=== PATIENT | female | born 1975 | race Caucasian/White ===

== ENCOUNTER → 2021-01-03 | Outpatient (CLI) | payer OTHER ==
[2017-11-15 15:00] VITALS: BP 162/88
[~2021-01-03] VITALS: Ht 154.9 cm; Wt 79.4 kg
[~2021-01-03] MED LIST: AMIT10TA PO; ANAS1TAB47 PO; APIX5TAB PO; ATOR20TA PO; CLONAZEPAM1 MG PO; CYCL5TAB PO; ENOX80DI SQ; FLUO40CA2 PO; HYDR-2761 PO; HYDR10TA2 PO; METO-239 PO; METO10TA81 PO; MIRT-8 PO; OMEP20TA63 PO; ONDA4TAB12 PO; OXYB15TA18 PO; PANT20TA2 PO; SINCALIDE 1.6 MCG in IV NORMAL SALINE 50ML 30 ML IV ONE; TRAM50TA PO; WARF4TAB64 PO
--- NOTE | 2021-01-03 08:41 | RAD ---
EXAMINATION: RIGHT UPPER QUADRANT ULTRASOUND CLINICAL HISTORY: Nausea, vomiting TECHNIQUE: Sonography of the right upper quadrant was performed. COMPARISON: CT abdomen/pelvis 10/31/2020 FINDINGS: Pancreas: Normal sonographic appearance. - Portions obscured: Tail Liver: - Echotexture: Normal, homogeneous. - Echogenicity: Increased, suggestive of steatosis. - Surface contour: Smooth - Lesions: None. Biliary: No intrahepatic biliary duct dilation. - CBD: 4 mm. - Gallbladder: Normal caliber - Contents: No cholelithiasis - Wall: Normal - Other: No pericholecystic fluid. Right Kidney: Measures 11.1 cm in length. No hydronephrosis or focal lesion. Ascites: None. Aorta/IVC: Partially visualized aorta and IVC unremarkable. IMPRESSION: Findings suggestive of hepatic steatosis. Electronically signed by: Teja Johnson DO (01/03/2021 8:38 AM) [id number]
--- NOTE | 2021-01-03 13:26 | RAD ---
INDICATION: Abdomen pain COMPARISON: Ultrasound from same day TECHNIQUE: Tc99m Choletec was injected intravenously followed by scintigraphic images of the abdomen. CCK was then injected and a gallbladder ejection fraction was calculated. FINDINGS: Appropriate radiotracer clearance from the blood pool. Appropriate radiotracer excretion into the biliary tree. Prompt passage of contrast into the small bowel. Visualization of the gallbladder prior to the 60 minute time point. Gallbladder ejection fraction is 23 percent. IMPRESSION: * No scintigraphic evidence of acute cholecystitis or high grade biliary obstruction. * Gallbladder ejection fraction is 23 percent which is decreased. Can be seen with biliary dyskines ia. Electronically signed by: Nate Robert MD (01/03/2021 1:23 PM) [id number]
== END ==
LOC: US 06:12
PROVIDERS: ATTEND Internal Medicine Gastroenterology
DX: R11.2 Nausea with vomiting, unspecified (principal); R10.9 Unspecified abdominal pain
CPT/HCPCS: 76705; 78227; A9537; J2805

== ENCOUNTER 2021-01-04 15:17 | Observation (INO) | payer OTHER ==
[~2021-01-04] VITALS: Ht 154.9 cm; Wt 79.3 kg
[~2021-01-04 15:17] MED LIST changes: -AMIT10TA PO; -ANAS1TAB47 PO; -APIX5TAB PO; -ATOR20TA PO; -CYCL5TAB PO; -ENOX80DI SQ; -HYDR-2761 PO; -METO-239 PO; -METO10TA81 PO; -OMEP20TA63 PO; -ONDA4TAB12 PO; -OXYB15TA18 PO; -SINCALIDE 1.6 MCG in IV NORMAL SALINE 50ML 30 ML IV ONE; -TRAM50TA PO
[2021-01-04] MEDS ORDERED: MORPHINE SULFATE 10 MG/ML VIAL. IV ONE (17:00)
[2021-01-04] MEDS ORDERED: ONDANSETRON PF 4 MG/2 ML VIAL. IVP ONE (17:00)
--- NOTE | 2021-01-04 17:24 | RAD ---
Single view chest dated 01/04/2021 5:21 PM: COMPARISON: None Clinical Indication: Right upper quadrant pain. Findings: Single upright portable exam of the chest was performed. Heart size and mediastinal contours are with in normal limits. Lungs are clear. No consolidation or pleural effusion. No pneumothorax. IMPRESSION: No acute radiographic abnormality. Electronically signed by: Mike Aldrich MD (01/04/2021 5:22 PM) KRYSTLE
--- NOTE | 2021-01-04 17:30 | PHYS DOC ---
Past Medical History Additional Past Medical Histor: Factor V Leiden, Breast Cx (FELTON FLORES DO) Past Surgical History: Appendectomy, Tubal ligation, Other (FELTON FLORES DO) Smoking Status: Former Smoker (FELTON FLORES DO) General Adult EDM: Chief Complaint: ABDOMINAL PAIN HPI: HPI: 45-year-old female presents to the emergency department presenting with right upper quadrant abdominal pain. She reports that she was here yesterday in the emergency department and had a HIDA scan as well as a right upper quadrant ultrasound performed and states that she is here today because her gallbladder is acting up. Patient states that she also is nauseous, intermittent vomiting. She otherwise has no complaints including no shortness of breath, cough, fever, chills. (FELTON FLORES DO) Review of Systems: Review of Systems: Constitutional: [Denies fever or chills]. Respiratory: [Denies cough or shortness of breath]. Cardiovascular: [Denies chest pain or edema]. GI: Admits to abdominal pain and nausea. : [Denies change in urination, dysuria]. Musculoskeletal: [Denies extremity pain, or trauma]. Skin: [Denies rash, skin change]. Neurologic: [Denies headache, focal weakness]. Psychiatric: [Denies depression or anxiety]. All other systems reviewed as negative except for what was mentioned in the HPI. (FELTON FLORES DO) Heart Score: C/O Chest Pain: No (FELTON FLORES DO) C/O Chest Pain: N/A (PRANAV BACON DO) Current Medications: Current Medications Medications (Trade) Dose Ordered Sig/[facility] Start Time Stop Time Status Last Admin Dose Admin Morphine Sulfate (Morphine Sulfate) 5 mg 1X ONCE 01/04/21 17:00 01/04/21 17:01 DC Ondansetron HCl (Zofran) 4 mg 1X ONCE 01/04/21 17:00 01/04/21 17:01 DC (FELTON FLORES DO) Allergies: Allergies: Allergies Coded Allergies Type Severity Reaction Last Updated Verified clindamycin Allergy Intermediate 11/14/17 Yes doxycycline Allergy Intermediate 11/11/17 Yes NSAIDS (Non-Steroidal Anti-Inflamma Adverse Reaction Intermediate 11/11/17 Yes (FELTON FLORES DO) Physical Exam: PE: Constitutional: No acute distress, non-toxic appearance. HENT: Atraumatic, bilateral external ears normal, nose normal. Eyes: PERRLA, EOMI, conjunctiva normal, no discharge. Neck: Normal range of motion, supple, no stridor. Cardiovascular: Heart rate regular rhythm. 2+ radial pulses Lungs & Thorax: No respiratory distress, symmetrical expansion. Abdomen: Soft, right upper quadrant tenderness, no distention no rebound or guarding. Skin: Warm, dry. Extremities: No tenderness, no cyanosis, ROM intact, no edema. Neurologic: Alert and oriented X 3, normal motor function, normal sensory function, no focal deficits noted. Non ataxic gait. GCS 15. Psychologic: Affect normal, judgment normal, mood normal. (FELTON FLORES DO) Current Patient Data: Vital Signs: Vital Signs Date Time Temp Pulse Resp B/P (MAP) Pulse Ox O2 Delivery O2 Flow Rate FiO2 01/04/21 16:30 97.7 80 18 135/93 (112) 100 Room Air 97.7 (FELTON FLORES DO) Radiology/Procedures: Radiology/Procedures: Single view chest dated 01/04/2021 5:21 PM: COMPARISON: None Clinical Indication: Right upper quadrant pain. Findings: Single upright portable exam of the chest was performed. Heart size and mediastinal contours are within normal limits. Lungs are clear. No consolidation or pleural effusion. No pneumothorax. IMPRESSION: No acute radiographic abnormality. Electronically signed by: Mike Aldrich MD (01/04/2021 5:22 PM) CT abdomen and pelvis with contrast: Reason for examination: Abdominal pain right upper quadrant for 2 to 3 weeks. Helical images were obtained through the abdomen and pelvis with intravenous administration of 75 cc Omnipaque 300. Reconstruction was performed in sagittal and coronal planes. Exposure: One or more of the following individualized dose reduction techniques were utilized for this examination: 1. Automated exposure control 2. Adjustment of the mA and/or kV according to patient size 3. Use of iterative reconstruction technique. The lung bases show a linear density at posteriorly at the right costophrenic angle probably reflecting atelectasis or scarring. The heart size is normal with no pericardial effusion. There is a small nodular asymmetry laterally in the right breast measuring approximately 1.4 cm in size. This may be related to history of right breast cancer. Recommend clinical correlation and appropriate follow-up. No focal abnormality seen at the liver, gallbladder, spleen, adrenal glands or pancreas. The abdominal aorta and inferior vena cava show no acute abnormalities. The colon shows no diverticulosis or diverticulitis or evidence of colitis. Appendix is surgically absent. The small intestinal tract shows no abnormal dilatation, wall thickening or obstruction. No abnormality seen at the stomach or duodenum. The kidneys show no renal masses, renal calculi, hydronephrosis or evidence of obstructive uropathy. No abnormality seen at the bladder or uterus. There has been tubal ligation. No adnexal masses are seen. No free fluid or free air is seen within the abdomen or pelvis. No acute bony abnormalities are seen. IMPRESSION: Linear atelectasis or scarring posteriorly at the right lung base. 1.4 cm nodular density in the right breast possibly related to previous history of right breast cancer. Recommend clinical correlation and appropriate follow- up. No abnormality seen in the abdomen or pelvis. Electronically signed by: Nciole Melchor MD (01/04/2021 6:24 PM) (FELTON FLORES DO) Course & Med Decision Making: Course & Med Decision Making Patient's chart was reviewed by me. She was here in the emergency department yesterday and had a HIDA scan and right upper quadrant ultrasound performed which were both unremarkable and did not show sign of choledocholithiasis or cholecystitis Care was transferred to Dr. Bacon at 1800, pending diagnostics. (FELTON FLORES DO) Course & Med Decision Making Assumed care at thisf change. Disposition pending CT and labs. REsults reviewed and discussed with patient. Patient c/o intractable pain and unable to keep food/drink down. Patient advised sent to ER by GI Doctor. Will admit to hospitalist and consult GI. (PRANAV BACON DO) Departure Departure Impression: Primary Impression: Abdominal pain Additional Impression: Nausea & vomiting Disposition: HOME / SELF CARE / HOMELESS Admitting Physician: EMBER (PRANAV BACON DO) Condition: STABLE Referrals: PAUL ROSAS (PCP) Patient Instructions: Abdominal Pain Scripts Metoclopramide Hcl (REGLAN) 10 Mg Tablet 10 MG PO BIDAC for Gastroparesis for 30 Days, #60 TAB 0 Refills Prov: DORIS ANDREWS MD 01/05/21 Ondansetron (ONDANSETRON ODT) 4 Mg Tab.rapdis 4 MG PO PRN Q4HRS PRN for NAUSEA for 30 Days, #30 TAB 5 Refills Prov: DORIS ANDREWS MD 01/05/21 FELTON FLORES DO Jan 04, 2021 17:30 PRANAV BACON I DO Jan 04, 2021 20:17
[2021-01-04 17:45] LABS: BASO % 1 % (0-3); EOS # 0.1 x10^3/uL (0.0-0.7); EOS % 1 % (0-3); HEMATOCRIT 34.1 % (36.0-47.0); HEMOGLOBIN 12.1 g/dL (12.0-15.5); LYMPH # 1.8 x10^3/uL (1.0-4.8); LYMPH % 36 % (24-48); MEAN CORPUSCULAR HEMOGLOBIN 30 pg (25-35); MEAN CORPUSCULAR HGB CONC 35 g/dL (31-37); MEAN CORPUSCULAR VOLUME 84 fL (79-100); MONO # 0.3 x10^3/uL (0.0-1.1); MONO % 6 % (0-9); NEUT # 2.8 x10^3/uL (1.8-7.7); NEUT % 56 % (31-73); PLATELET COUNT 279 x10^3/uL (140-400); RED BLOOD COUNT 4.04 x10^6/uL (3.50-5.40); RED CELL DISTRIBUTION WIDTH 16.3 % (11.5-14.5)
[2021-01-04 17:55] LABS: CALCIUM 9.1 mg/dL (8.5-10.1); CREATININE 0.9 mg/dL (0.6-1.0); POTASSIUM 3.1 mmol/L (3.5-5.1)
[2021-01-04 18:01] LABS: DIRECT BILIRUBIN 0.1 mg/dL (0.0-0.2); TOTAL BILIRUBIN 0.4 mg/dL (0.2-1.0); TOTAL PROTEIN 7.7 g/dL (6.4-8.2)
[2021-01-04] MEDS ORDERED: IOHEXOL 300 MG/ML 100ML VIAL. IV ONE (18:15)
[2021-01-04] MEDS ORDERED: CONTRAST GIVEN. MC PRN (18:15)
--- NOTE | 2021-01-04 18:26 | RAD ---
CT abdomen and pelvis with contrast: Reason for examination: Abdominal pain right upper quadrant for 2 to 3 weeks. Helical images were obtained through the abdomen and pelvis with intravenous administration of 75 cc Omnipaque 300. Reconstruction was performed in sagittal and coronal planes. Exposure: One or more of the following individualized dose reduction techniques were utilized for thi s examination: 1. Automated exposure control 2. Adjustment of the mA and/or kV according to patient size 3. Use of iterative reconstruction technique. The lung bases show a linear density at posteriorly at the right costophrenic angle probably reflecti ng atelectasis or scarring. The heart size is normal with no pericardial effusion. There is a small n odular asymmetry laterally in the right breast measuring approximately 1.4 cm in size. This may be re lated to history of right breast cancer. Recommend clinical correlation and appropriate follow-up. No focal abnormality seen at the liver, gallbladder, spleen, adrenal glands or pancreas. The abdomina l aorta and inferior vena cava show no acute abnormalities. The colon shows no diverticulosis or dive rticulitis or evidence of colitis. Appendix is surgically absent. The small intestinal tract shows no abnormal dilatation, wall thickening or obstruction. No abnormality seen at the stomach or duodenum. The kidneys show no renal masses, renal calculi, hydronephrosis or evidence of obstructive uropathy. No abnormality seen at the bladder or uterus. There has been tubal ligation. No adnexal masses are se en. No free fluid or free air is seen within the abdomen or pelvis. No acute bony abnormalities are s een. IMPRESSION: Linear atelectasis or scarring posteriorly at the right lung base. 1.4 cm nodular density in the right breast possibly related to previous history of right breast cance r. Recommend clinical correlation and appropriate follow-up. No abnormality seen in the abdomen or pelvis. Electronically signed by: Nicole Melchor MD (01/04/2021 6:24 PM) CHUY
[2021-01-04 19:04] LABS: BILIRUBIN,URINE NEGATIVE (NEG); CLARITY,URINE CLEAR; COLOR,URINE YELLOW; NITRITE,URINE NEGATIVE (NEG); PROTEIN,URINE NEGATIVE (NEG-TRACE); UROBILINOGEN,URINE 0.2 mg/dL (0.2 mg/dL)
[2021-01-04 19:11] LABS: BACTERIA,URINE 0 /HPF (0-FEW); RBC,URINE 0 /HPF (0-2)
[2021-01-04] MEDS ORDERED: MORPHINE SULFATE 2 MG/ML INJ. IVP PRN (20:30)
[2021-01-04] MEDS ORDERED: METOCLOPRAMIDE HCL 10 MG/2 ML VIAL. IVP ONE (21:00)
[2021-01-04] MEDS ORDERED: MORPHINE SULFATE 4 MG/ML INJ. IVP ONE (21:00)
[2021-01-04 23:00] VITALS: BP 161/101
[2021-01-04] MEDS ORDERED: METO-239 PO (23:24)
[2021-01-04] MEDS ORDERED: CYCL5TAB PO (23:24)
[2021-01-04] MEDS ORDERED: APIX5TAB PO (23:24)
[2021-01-04] MEDS ORDERED: OXYB15TA18 PO (23:24)
[2021-01-04] MEDS ORDERED: ATOR20TA PO (23:24)
[2021-01-04] MEDS ORDERED: OMEP20TA63 PO (23:24)
[2021-01-04] MEDS ORDERED: AMIT10TA PO (23:24)
[2021-01-04] MEDS ORDERED: ANAS1TAB47 PO (23:24)
[2021-01-04] MEDS ORDERED: NON FORMULARY ITEM (Cyclobenzaprine Hcl 1 TAB) PO SCH (23:45)
[2021-01-04] MEDS ORDERED: ANTI-COAG MONITOR BY PHARMACY. MC PRN (23:45)
[2021-01-05] MEDS ORDERED: ATORVASTATIN CALCIUM 20 MG TABLET PO SCH ×2
[2021-01-05] MEDS ORDERED: METOPROLOL SUCC 24HR ER 25 MG TAB.ER.24H. PO SCH ×2
[2021-01-05] MEDS ORDERED: ANASTROZOLE 1 MG TABLET PO SCH ×2
[2021-01-05] MEDS ORDERED: AMITRIPTYLINE HCL 10 MG TABLET. PO SCH ×2
[2021-01-05] MEDS ORDERED: PANTOPRAZOLE 40 MG TABLET.DR. PO SCH
[2021-01-05] MEDS ORDERED: CYCLOBENZAPRINE 10 MG TABLET. PO SCH
[2021-01-05] MEDS: APIXABAN 5 MG TABLET. PO SCH ×2 (00:28→09:00)
[2021-01-05] MEDS: METOCLOPRAMIDE HCL 10 MG/2 ML VIAL. IVP PRN ×3 (00:29→13:47)
[2021-01-05 02:59] VITALS: BP 118/78
--- NOTE | 2021-01-05 04:05 | NUR ---
The patient, NAOMY EDMOND, 45 y/o, F admitted by NATALI OVERTON MD, was given written information regarding hospital policies, unit procedures and contact persons. Valuables were checked and 2 cell phones, a pallet stone positioner, and clothes.
[2021-01-05 07:00] VITALS: BP 116/72
--- NOTE | 2021-01-05 07:44 | PDOC1 ---
History and Physical Date of Admission Date of Admission DATE: 01/05/21 TIME: 07:42 Identification/Chief Complaint Chief Complaint Abdominal pain Source Source: Patient History of Present Illness History of Present Illness Ms. Styles is a 45-year-old female with past medical history of factor V Leiden breast cancer comes to the ED 2 days in a row for what she describes as intractable abdominal pain she had right upper quadrant ultrasound and HIDA scan on 01/03/2021 that showed fatty liver otherwise fairly unremarkable gallbladder ultrasound though on HIDA scan EF was 23% possibility of biliary dyskinesia. She did eat bagels every morning for the last week and a donut yesterday morning with coffee. Counseled on low-fat diet and discussed with GI and general surgery nurse practitioner bedside. Past Medical History Cardiovascular: No pertinent hx Pulmonary: No pertinent hx GI: No pertinent hx Heme/Onc: Other (Factor V leiden) Hepatobiliary: No pertinent hx Psych: No pertinent hx Musculoskeletal: low back pain Rheumatologic: No pertinent hx Infectious disease: No pertinent hx Renal/: No pertinent hx Endocrine: No pertinent hx Past Surgical History Past Surgical History: Appendectomy, Tubal Ligation Family History Family History: Other (Factor V leiden) Social History Smoke: Quit ALCOHOL: none Current Problem List Problem List Problems Medical Problems: (1) Abdominal pain Status: Acute (2) Nausea & vomiting Status: Acute Current Medications Current Medications Current Medications Morphine Sulfate (Morphine Sulfate) 5 mg 1X ONCE IV Last administered on 01/04/21at 17:53; Start 01/04/21 at 17:00; Stop 01/04/21 at 17:01; Status DC Ondansetron HCl (Zofran) 4 mg 1X ONCE IVP Last administered on 01/04/21at 17:51; Start 01/04/21 at 17:00; Stop 01/04/21 at 17:01; Status DC Iohexol (Omnipaque 300 Mg/ml) 75 ml 1X ONCE IV Last administered on 01/04/21at 18:07; Start 01/04/21 at 18:15; Stop 01/04/21 at 18:16; Status DC Info (CONTRAST GIVEN -- Rx MONITORING) 1 each PRN DAILY PRN MC SEE COMMENTS; Start 01/04/21 at 18:15; Stop 01/06/21 at 18:14 Morphine Sulfate (Morphine Sulfate) 2 mg PRN Q2HR PRN IVP PAIN Last administered on 01/05/21at 00:30; Start 01/04/21 at 20:30; Stop 01/05/21 at 20:29 Metoclopramide HCl (Reglan Vial) 10 mg 1X ONCE IVP Last administered on 01/04/21at 20:58; Start 01/04/21 at 21:00; Stop 01/04/21 at 21:01; Status DC Morphine Sulfate (Morphine Sulfate) 4 mg 1X ONCE IVP Last administered on 01/04/21at 20:58; Start 01/04/21 at 21:00; Stop 01/04/21 at 21:01; Status DC Amitriptyline HCl (Elavil) 40 mg HS PO ; Start 01/05/21 at 00:00; Stop 01/04/21 at 23:49; Status DC Anastrozole (Arimidex) 1 mg HS PO ; Start 01/05/21 at 00:00; Stop 01/04/21 at 23:49; Status DC Atorvastatin Calcium (Lipitor) 20 mg HS PO ; Start 01/05/21 at 00:00; Stop 01/04/21 at 23:49; Status DC Metoprolol Succinate (Toprol Xl) 25 mg HS PO ; Start 01/05/21 at 00:00; Stop 01/04/21 at 23:49; Status DC Cyclobenzaprine HCl (Flexeril) 5 mg QHS PO Last administered on 01/05/21at 00:28; Start 01/05/21 at 00:00 Pantoprazole Sodium (Protonix) 40 mg HS PO Last administered on 01/05/21at 00:28; Start 01/05/21 at 00:00 Oxybutynin Chloride (Ditropan) 5 mg [id number] PO ; Start 01/05/21 at 09:00 Apixaban (Eliquis) 5 mg BID PO Last administered on 01/05/21at 00:28; Start 01/05/21 at 00:00 Metoclopramide HCl (Reglan Vial) 10 mg PRN Q6HRS PRN IVP NAUSEA/VOMITING Last administered on 01/05/21at 07:07; Start 01/04/21 at 23:45 Amitriptyline HCl (Elavil) 40 mg HS PO Last administered on 01/05/21at 00:28; Start 01/05/21 at 00:00 Anastrozole (Arimidex) 1 mg HS PO Last administered on 01/05/21at 00:41; Start 01/05/21 at 00:00 Atorvastatin Calcium (Lipitor) 20 mg HS PO Last administered on 01/05/21at 00:29; Start 01/05/21 at 00:00 Metoprolol Succinate (Toprol Xl) 25 mg HS PO Last administered on 01/05/21at 00:29; Start 01/05/21 at 00:00 Non-Formulary Medication (Cyclobenzaprine Hcl ) 1 tab QHS PO ; Start 01/04/21 at 23:45; Status UNV Info (Anti-Coagulation Monitoring By Pharmacy) 1 each PRN DAILY PRN MC PER PROTOCOL Last administered on 01/05/21at 00:59; Start 01/04/21 at 23:45 Active Scripts Active Reported Eliquis (Apixaban) 5 Mg Tablet 5 Mg PO BID Eliquis (Apixaban) 5 Mg Tablet 5 Mg PO BID Lipitor (Atorvastatin Calcium) 20 Mg Tablet 1 Tab PO HS Oxybutynin Chloride Er (Oxybutynin Chloride) 15 Mg Tab.er.24 1 Tab PO HS Metoprolol Succinate ( Xl ) (Metoprolol Succinate) 25 Mg Tab.er.24h 1 Tab PO HS Cyclobenzaprine Hcl 5 Mg Tablet 1 Tab PO QHS Arimidex (Anastrozole) 1 Mg Tablet 1 Tab PO HS 30 Days Amitriptyline Hcl 10 Mg Tablet 40 Mg PO HS Prilosec Otc (Omeprazole Magnesium) 20 Mg Tablet.dr 40 Mg PO HS Allergies Allergies: Coded Allergies: clindamycin (Verified Allergy, Intermediate, 11/14/17) doxycycline (Verified Allergy, Intermediate, 11/11/17) NSAIDS (Non-Steroidal Anti-Inflamma (Verified Adverse Reaction, Intermediate, 11/11/17) pt. states she cannot take while on Coumadin ROS General: No: Chills, Night Sweats, Fatigue, Malaise, Appetite, Other PSYCHOLOGICAL ROS: No: Anxiety, Behavioral Disorder, Concentration difficultie, Decreased libido, Depression, Disorientation, Hallucinations, Hostility, Irritablity, Memory difficulties, Mood Swings, Obsessive thoughts, Physical abuse, Sexual abuse, Sleep disturbances, Suicidal ideation, Other Eyes: No Blurry vision, No Decreased vision, No Double vision, No Dry eyes, No Excessive tearing, No Eye Pain, No Itchy Eyes, No Loss of vision, No Photophobia, No Scotomata, No Uses contacts, No Uses glasses, No Other HEENT: No: Heacaches, Visual Changes, Hearing change, Nasal congestion, Nasal discharge, Oral lesions, Sinus pain, Sore Throat, Epistaxis, Sneezing, Snoring, Tinnitus, Vertigo, Vocal changes, Other ALLERGY AND IMMUNOLOGY: No: Hives, Insect Bite Sensitivity, Itchy/Watery Eyes, Nasal Congestion, Post Nasal Drip, Seasonal Allergies, Other Hematological and Lymphatic: No: Bleeding Problems, Blood Clots, Blood Transfusions, Brusing, Night Sweats, Pallor, Swollen Lymph Nodes, Other ENDOCRINE: No: Breast Changes, Galactorrhea, Hair Pattern Changes, Hot Flashes, Malaise/lethargy, Mood Swings, Palpitations, Polydipsia/polyuria, Skin Changes, Temperature Intolerance, Unexpected Weight Changes, Other Breast: No New/Changing Breast Lumps, No Nipple changes, No Nipple discharge, No Other Respiratory: No: Cough, Hemoptysis, Orthopnea, Pleuritic Pain, Shortness of breath, SOB with excertion, Sputum Changes, Stridor, Tachypnea, Wheezing, Other Cardiovascular: No Chest Pain, No Palpitations, No Orthopnea, No Paroxysmal Noc. Dyspnea, No Edema, No Lt Headedness, No Other Gastrointestinal: Yes Nausea, Yes Abdominal Pain; No Vomiting, No Diarrhea, No Constipation, No Melena, No Hematochezia, No Other Genitourinary: No Dysuria, No Frequency, No Incontinence, No Hematuria, No Retention, No Discharge, No Urgency, No Pain, No Flank Pain, No Other, No , No , No , No , No , No , No Musculoskeletal: No Gait Disturbance, No Joint Pain, No Joint Stiffness, No Joint Swelling, No Muscle Pain, No Muscular Weakness, No Pain In:, No Swelling In:, No Other Neurological: No Behavorial Changes, No Bowel/Bladder ControlChng, No Confusion, No Dizziness, No Gait Disturbance, No Headaches, No Impaired Coord/balance, No Memory Loss, No Numbness/Tingling, No Seizures, No Speech Problems, No Tremors, No Visual Changes, No Weakness, No Other Skin: No Dry Skin, No Eczema, No Hair Changes, No Lumps, No Mole Changes, No Mottling, No Nail Changes, No Pruritus, No Rash, No Skin Lesion Changes, No Other, No Acne Physical Exam General: Alert, Oriented X3, Cooperative, No acute distress HEENT: Atraumatic, PERRLA, EOMI, Mucous membr. moist/pink Lungs: Clear to auscultation, Normal air movement Heart: S1S2, RRR, no thrills, no rubs, no gallops, no murmurs Abdomen: Normal bowel sounds, Soft, No tenderness, No hepatosplenomegaly, No masses Extremities: No clubbing, No cyanosis, No edema, Normal pulses, No tenderness/swelling Skin: No rashes, No breakdown, No significant lesion Neuro: Normal gait, Normal speech, Strength at 5/5 X4 ext, Normal tone, Sensation intact, Cranial nerves 3-12 NL, Reflexes 2+ Psych/Mental Status: Mental status NL, Mood NL Vitals Vitals Vital Signs Date Time Temp Pulse Resp B/P (MAP) Pulse Ox O2 Delivery O2 Flow Rate FiO2 01/05/21 02:59 97.5 75 18 118/78 (91) 99 Room Air 97.5 Labs Labs Laboratory Tests Test 01/04/21 17:30 01/04/21 18:30 01/04/21 19:07 White Blood Count 5.0 x10^3/uL (4.0-11.0) Red Blood Count 4.04 x10^6/uL (3.50-5.40) Hemoglobin 12.1 g/dL (12.0-15.5) Hematocrit 34.1 % (36.0-47.0) Mean Corpuscular Volume 84 fL (79-100) Mean Corpuscular Hemoglobin 30 pg (25-35) Mean Corpuscular Hemoglobin Concent 35 g/dL (31-37) Red Cell Distribution Width 16.3 % (11.5-14.5) Platelet Count 279 x10^3/uL (140-400) Neutrophils (%) (Auto) 56 % (31-73) Lymphocytes (%) (Auto) 36 % (24-48) Monocytes (%) (Auto) 6 % (0-9) Eosinophils (%) (Auto) 1 % (0-3) Basophils (%) (Auto) 1 % (0-3) Neutrophils # (Auto) 2.8 x10^3/uL (1.8-7.7) Lymphocytes # (Auto) 1.8 x10^3/uL (1.0-4.8) Monocytes # (Auto) 0.3 x10^3/uL (0.0-1.1) Eosinophils # (Auto) 0.1 x10^3/uL (0.0-0.7) Basophils # (Auto) 0.0 x10^3/uL (0.0-0.2) Sodium Level 143 mmol/L (136-145) Potassium Level 3.1 mmol/L (3.5-5.1) Chloride Level 105 mmol/L (98-107) Carbon Dioxide Level 28 mmol/L (21-32) Anion Gap 10 (6-14) Blood Urea Nitrogen 9 mg/dL (7-20) Creatinine 0.9 mg/dL (0.6-1.0) Estimated GFR (Cockcroft-Gault) 68.0 Glucose Level 102 mg/dL (70-99) Calcium Level 9.1 mg/dL (8.5-10.1) Total Bilirubin 0.4 mg/dL (0.2-1.0) Direct Bilirubin 0.1 mg/dL (0.0-0.2) Aspartate Amino Transf (AST/SGOT) 20 U/L (15-37) Alanine Aminotransferase (ALT/SGPT) 29 U/L (14-59) Alkaline Phosphatase 117 U/L (46-116) Total Protein 7.7 g/dL (6.4-8.2) Albumin 4.0 g/dL (3.4-5.0) Lipase 68 U/L (73-393) Urine Collection Type Unknown Urine Color Yellow Urine Clarity Clear Urine pH 7.0 (<5.0-8.0) Urine Specific [place] >=1.030 (1.000-1.030) Urine Protein Negative mg/dL (NEG-TRACE) Urine Glucose (UA) Negative mg/dL (NEG) Urine Ketones (Stick) Negative mg/dL (NEG) Urine Blood Negative (NEG) Urine Nitrite Negative (NEG) Urine Bilirubin Negative (NEG) Urine Urobilinogen Dipstick 0.2 mg/dL (0.2 mg/dL) Urine Leukocyte Esterase Trace (NEG) Urine RBC 0 /HPF (0-2) Urine WBC 1-4 /HPF (0-4) Urine Squamous Epithelial Cells Mod /LPF Urine Bacteria 0 /HPF (0-FEW) Bedside Urine HCG, Qualitative Hcg negative (Negative) Laboratory Tests Test 01/04/21 17:30 01/04/21 18:30 01/04/21 19:07 White Blood Count 5.0 x10^3/uL (4.0-11.0) Red Blood Count 4.04 x10^6/uL (3.50-5.40) Hemoglobin 12.1 g/dL (12.0-15.5) Hematocrit 34.1 % (36.0-47.0) Mean Corpuscular Volume 84 fL (79-100) Mean Corpuscular Hemoglobin 30 pg (25-35) Mean Corpuscular Hemoglobin Concent 35 g/dL (31-37) Red Cell Distribution Width 16.3 % (11.5-14.5) Platelet Count 279 x10^3/uL (140-400) Neutrophils (%) (Auto) 56 % (31-73) Lymphocytes (%) (Auto) 36 % (24-48) Monocytes (%) (Auto) 6 % (0-9) Eosinophils (%) (Auto) 1 % (0-3) Basophils (%) (Auto) 1 % (0-3) Neutrophils # (Auto) 2.8 x10^3/uL (1.8-7.7) Lymphocytes # (Auto) 1.8 x10^3/uL (1.0-4.8) Monocytes # (Auto) 0.3 x10^3/uL (0.0-1.1) Eosinophils # (Auto) 0.1 x10^3/uL (0.0-0.7) Basophils # (Auto) 0.0 x10^3/uL (0.0-0.2) Sodium Level 143 mmol/L (136-145) Potassium Level 3.1 mmol/L (3.5-5.1) Chloride Level 105 mmol/L (98-107) Carbon Dioxide Level 28 mmol/L (21-32) Anion Gap 10 (6-14) Blood Urea Nitrogen 9 mg/dL (7-20) Creatinine 0.9 mg/dL (0.6-1.0) Estimated GFR (Cockcroft-Gault) 68.0 Glucose Level 102 mg/dL (70-99) Calcium Level 9.1 mg/dL (8.5-10.1) Total Bilirubin 0.4 mg/dL (0.2-1.0) Direct Bilirubin 0.1 mg/dL (0.0-0.2) Aspartate Amino Transf (AST/SGOT) 20 U/L (15-37) Alanine Aminotransferase (ALT/SGPT) 29 U/L (14-59) Alkaline Phosphatase 117 U/L (46-116) Total Protein 7.7 g/dL (6.4-8.2) Albumin 4.0 g/dL (3.4-5.0) Lipase 68 U/L (73-393) Urine Collection Type Unknown Urine Color Yellow Urine Clarity Clear Urine pH 7.0 (<5.0-8.0) Urine Specific [place] >=1.030 (1.000-1.030) Urine Protein Negative mg/dL (NEG-TRACE) Urine Glucose (UA) Negative mg/dL (NEG) Urine Ketones (Stick) Negative mg/dL (NEG) Urine Blood Negative (NEG) Urine Nitrite Negative (NEG) Urine Bilirubin Negative (NEG) Urine Urobilinogen Dipstick 0.2 mg/dL (0.2 mg/dL) Urine Leukocyte Esterase Trace (NEG) Urine RBC 0 /HPF (0-2) Urine WBC 1-4 /HPF (0-4) Urine Squamous Epithelial Cells Mod /LPF Urine Bacteria 0 /HPF (0-FEW) Bedside Urine HCG, Qualitative Hcg negative (Negative) Images Images CT abdomen/pelvis: The lung bases show a linear density at posteriorly at the right costophrenic angle probably reflecting atelectasis or scarring. The heart size is normal with no pericardial effusion. There is a small nodular asymmetry laterally in the right breast measuring approximately 1.4 cm in size. This may be related to history of right breast cancer. Recommend clinical correlation and appropriate follow-up. No focal abnormality seen at the liver, gallbladder, spleen, adrenal glands or pancreas. The abdominal aorta and inferior vena cava show no acute abnormalities. The colon shows no diverticulosis or diverticulitis or evidence of colitis. Appendix is surgically absent. The small intestinal tract shows no abnormal dilatation, wall thickening or obstruction. No abnormality seen at the stomach or duodenum. The kidneys show no renal masses, renal calculi, hydronephrosis or evidence of obstructive uropathy. No abnormality seen at the bladder or uterus. There has been tubal ligation. No adnexal masses are seen. No free fluid or free air is seen within the abdomen or pelvis. No acute bony abnormalities are seen. IMPRESSION: Linear atelectasis or scarring posteriorly at the right lung base. 1.4 cm nodular density in the right breast possibly related to previous history of right breast cancer. Recommend clinical correlation and appropriate follow- up. No abnormality seen in the abdomen or pelvis. VTE Prophylaxis Ordered VTE Prophylaxis Devices: Yes VTE Pharmacological Prophylaxi: No Assessment/Plan Assessment/Plan A/P: Intractable abdominal pain -notes 2-week history. Counseled on low-fat diet and a low processed carbohydrate diet. No signs of acute cholecystitis I discussed outpatient referral for consideration of cholecystectomy is more appropriate and she would need to be bridged on Lovenox therapy anyway given her history of pulmonary embolism and factor V Leiden. I discussed with GI and general surgery. Factor V Leiden - with h/o pulmonary embolism, on eliquis. Heme onc was consulted. breast cancer - on arimidex FEN - Clear liquid diet PPX - eliquis to lovenox FULL CODE DIspo - observation, can d/c home and schedule outpatient elective cholecystectomy on Lovenox if okay with everyone else and she tolerates diet well Justifications for Admission Other Justification DORIS ANDREWS MD Jan 05, 2021 07:44
[2021-01-05] MEDS: OXYBUTYNIN CHLORIDE 5 MG TABLET PO SCH ×2 (09:00→14:00)
--- NOTE | 2021-01-05 09:05 | PDOC2 ---
CHARMAINE JUNIOR Faizan [employer]SEMBLER MOVEMENT 01/05/21 0904: CONSULT Date of Consult Date of Consult DATE: 01/05/21 TIME: 08:58 Reason for Consult Reason for Consult: abd pain, low GB EF Referring Physician Referring Physician: YULIET Identification/Chief Complaint Chief Complaint abdominal pain Source Source: Chart review, Patient History of Present Illness Reason for Visit: RUQ pain x 2 weeks, was see as outpt by DEDRICK Kennedy done yesterday with low EF of 23% nausea, emesis she does have factor V leiden--on eliquis, did receive last night Past Medical History Cardiovascular: No pertinent hx Pulmonary: No pertinent hx GI: No pertinent hx Heme/Onc: No pertinent hx Hepatobiliary: No pertinent hx Psych: No pertinent hx Musculoskeletal: low back pain Rheumatologic: No pertinent hx Infectious disease: No pertinent hx Renal/: No pertinent hx Endocrine: No pertinent hx Past Surgical History Past Surgical History: Appendectomy, Hernia Repair Family History Family History: Other (noncontributory to current illness ) Social History Quit ALCOHOL: none Lives: Alone Current Problem List Problem List Problems Medical Problems: (1) Abdominal pain Status: Acute (2) Nausea & vomiting Status: Acute Current Medications Current Medications Current Medications Morphine Sulfate (Morphine Sulfate) 5 mg 1X ONCE IV Last administered on 01/04/21at 17:53; Start 01/04/21 at 17:00; Stop 01/04/21 at 17:01; Status DC Ondansetron HCl (Zofran) 4 mg 1X ONCE IVP Last administered on 01/04/21at 17:51; Start 01/04/21 at 17:00; Stop 01/04/21 at 17:01; Status DC Iohexol (Omnipaque 300 Mg/ml) 75 ml 1X ONCE IV Last administered on 01/04/21at 18:07; Start 01/04/21 at 18:15; Stop 01/04/21 at 18:16; Status DC Info (CONTRAST GIVEN -- Rx MONITORING) 1 each PRN DAILY PRN MC SEE COMMENTS; Start 01/04/21 at 18:15; Stop 01/06/21 at 18:14 Morphine Sulfate (Morphine Sulfate) 2 mg PRN Q2HR PRN IVP PAIN Last administered on 01/05/21at 00:30; Start 01/04/21 at 20:30; Stop 01/05/21 at 20:29 Metoclopramide HCl (Reglan Vial) 10 mg 1X ONCE IVP Last administered on 01/04/21at 20:58; Start 01/04/21 at 21:00; Stop 01/04/21 at 21:01; Status DC Morphine Sulfate (Morphine Sulfate) 4 mg 1X ONCE IVP Last administered on 01/04/21at 20:58; Start 01/04/21 at 21:00; Stop 01/04/21 at 21:01; Status DC Amitriptyline HCl (Elavil) 40 mg HS PO ; Start 01/05/21 at 00:00; Stop 01/04/21 at 23:49; Status DC Anastrozole (Arimidex) 1 mg HS PO ; Start 01/05/21 at 00:00; Stop 01/04/21 at 23:49; Status DC Atorvastatin Calcium (Lipitor) 20 mg HS PO ; Start 01/05/21 at 00:00; Stop 01/04/21 at 23:49; Status DC Metoprolol Succinate (Toprol Xl) 25 mg HS PO ; Start 01/05/21 at 00:00; Stop 01/04/21 at 23:49; Status DC Cyclobenzaprine HCl (Flexeril) 5 mg QHS PO Last administered on 01/05/21at 00:28; Start 01/05/21 at 00:00 Pantoprazole Sodium (Protonix) 40 mg HS PO Last administered on 01/05/21at 00:28; Start 01/05/21 at 00:00 Oxybutynin Chloride (Ditropan) 5 mg WMT450 PO ; Start 01/05/21 at 09:00 Apixaban (Eliquis) 5 mg BID PO Last administered on 01/05/21at 00:28; Start 01/05/21 at 00:00 Metoclopramide HCl (Reglan Vial) 10 mg PRN Q6HRS PRN IVP NAUSEA/VOMITING Last administered on 01/05/21at 07:07; Start 01/04/21 at 23:45 Amitriptyline HCl (Elavil) 40 mg HS PO Last administered on 01/05/21at 00:28; Start 01/05/21 at 00:00 Anastrozole (Arimidex) 1 mg HS PO Last administered on 01/05/21at 00:41; Start 01/05/21 at 00:00 Atorvastatin Calcium (Lipitor) 20 mg HS PO Last administered on 01/05/21at 00:29; Start 01/05/21 at 00:00 Metoprolol Succinate (Toprol Xl) 25 mg HS PO Last administered on 01/05/21at 00:29; Start 01/05/21 at 00:00 Non-Formulary Medication (Cyclobenzaprine Hcl ) 1 tab QHS PO ; Start 01/04/21 at 23:45; Status UNV Info (Anti-Coagulation Monitoring By Pharmacy) 1 each PRN DAILY PRN MC PER PROTOCOL Last administered on 01/05/21at 00:59; Start 01/04/21 at 23:45 Active Scripts Active Reported Eliquis (Apixaban) 5 Mg Tablet 5 Mg PO BID Eliquis (Apixaban) 5 Mg Tablet 5 Mg PO BID Lipitor (Atorvastatin Calcium) 20 Mg Tablet 1 Tab PO HS Oxybutynin Chloride Er (Oxybutynin Chloride) 15 Mg Tab.er.24 1 Tab PO HS Metoprolol Succinate ( Xl ) (Metoprolol Succinate) 25 Mg Tab.er.24h 1 Tab PO HS Cyclobenzaprine Hcl 5 Mg Tablet 1 Tab PO QHS Arimidex (Anastrozole) 1 Mg Tablet 1 Tab PO HS 30 Days Amitriptyline Hcl 10 Mg Tablet 40 Mg PO HS Prilosec Otc (Omeprazole Magnesium) 20 Mg Tablet.dr 40 Mg PO HS Allergies Allergies: Coded Allergies: clindamycin (Verified Allergy, Intermediate, 11/14/17) doxycycline (Verified Allergy, Intermediate, 11/11/17) NSAIDS (Non-Steroidal Anti-Inflamma (Verified Adverse Reaction, Intermediate, 11/11/17) pt. states she cannot take while on Coumadin ROS General: No: Chills, Fatigue PSYCHOLOGICAL ROS: No: Anxiety, Depression Eyes: No Blurry vision, No Double vision HEENT: No: Heacaches, Sore Throat Hematological and Lymphatic: YES: Bleeding Problems, Blood Clots Respiratory: No: Cough, Shortness of breath Cardiovascular: No Chest Pain, No Palpitations Gastrointestinal: Yes Other (see hpi) Genitourinary: No Dysuria, No Retention Musculoskeletal: No Joint Pain, No Muscular Weakness Neurological: No Impaired Coord/balance, No Numbness/Tingling Skin: No Pruritus, No Rash Physical Exam General: Alert, Oriented X3, Cooperative HEENT: Atraumatic, PERRLA Lungs: Clear to auscultation, Normal air movement Heart: Regular rate, Normal S1, Normal S2 Abdomen: Soft, Other (RUQ ttp) Extremities: No clubbing, No cyanosis Skin: No rashes, No breakdown Neuro: Normal gait, Normal speech Psych/Mental Status: Mental status NL, Mood NL MUSCULOSKELETAL: No deformity, No swelling Vitals VITALS Vital Signs Date Time Temp Pulse Resp B/P (MAP) Pulse Ox O2 Delivery O2 Flow Rate FiO2 01/05/21 02:59 97.5 75 18 118/78 (91) 99 Room Air 97.5 Labs Labs Laboratory Tests Test 01/04/21 17:30 01/04/21 18:30 01/04/21 19:07 White Blood Count 5.0 x10^3/uL (4.0-11.0) Red Blood Count 4.04 x10^6/uL (3.50-5.40) Hemoglobin 12.1 g/dL (12.0-15.5) Hematocrit 34.1 % (36.0-47.0) Mean Corpuscular Volume 84 fL (79-100) Mean Corpuscular Hemoglobin 30 pg (25-35) Mean Corpuscular Hemoglobin Concent 35 g/dL (31-37) Red Cell Distribution Width 16.3 % (11.5-14.5) Platelet Count 279 x10^3/uL (140-400) Neutrophils (%) (Auto) 56 % (31-73) Lymphocytes (%) (Auto) 36 % (24-48) Monocytes (%) (Auto) 6 % (0-9) Eosinophils (%) (Auto) 1 % (0-3) Basophils (%) (Auto) 1 % (0-3) Neutrophils # (Auto) 2.8 x10^3/uL (1.8-7.7) Lymphocytes # (Auto) 1.8 x10^3/uL (1.0-4.8) Monocytes # (Auto) 0.3 x10^3/uL (0.0-1.1) Eosinophils # (Auto) 0.1 x10^3/uL (0.0-0.7) Basophils # (Auto) 0.0 x10^3/uL (0.0-0.2) Sodium Level 143 mmol/L (136-145) Potassium Level 3.1 mmol/L (3.5-5.1) Chloride Level 105 mmol/L (98-107) Carbon Dioxide Level 28 mmol/L (21-32) Anion Gap 10 (6-14) Blood Urea Nitrogen 9 mg/dL (7-20) Creatinine 0.9 mg/dL (0.6-1.0) Estimated GFR (Cockcroft-Gault) 68.0 Glucose Level 102 mg/dL (70-99) Calcium Level 9.1 mg/dL (8.5-10.1) Total Bilirubin 0.4 mg/dL (0.2-1.0) Direct Bilirubin 0.1 mg/dL (0.0-0.2) Aspartate Amino Transf (AST/SGOT) 20 U/L (15-37) Alanine Aminotransferase (ALT/SGPT) 29 U/L (14-59) Alkaline Phosphatase 117 U/L (46-116) Total Protein 7.7 g/dL (6.4-8.2) Albumin 4.0 g/dL (3.4-5.0) Lipase 68 U/L (73-393) Urine Collection Type Unknown Urine Color Yellow Urine Clarity Clear Urine pH 7.0 (<5.0-8.0) Urine Specific [place] >=1.030 (1.000-1.030) Urine Protein Negative mg/dL (NEG-TRACE) Urine Glucose (UA) Negative mg/dL (NEG) Urine Ketones (Stick) Negative mg/dL (NEG) Urine Blood Negative (NEG) Urine Nitrite Negative (NEG) Urine Bilirubin Negative (NEG) Urine Urobilinogen Dipstick 0.2 mg/dL (0.2 mg/dL) Urine Leukocyte Esterase Trace (NEG) Urine RBC 0 /HPF (0-2) Urine WBC 1-4 /HPF (0-4) Urine Squamous Epithelial Cells Mod /LPF Urine Bacteria 0 /HPF (0-FEW) Bedside Urine HCG, Qualitative Hcg negative (Negative) Laboratory Tests Test 01/04/21 17:30 01/04/21 18:30 01/04/21 19:07 White Blood Count 5.0 x10^3/uL (4.0-11.0) Red Blood Count 4.04 x10^6/uL (3.50-5.40) Hemoglobin 12.1 g/dL (12.0-15.5) Hematocrit 34.1 % (36.0-47.0) Mean Corpuscular Volume 84 fL (79-100) Mean Corpuscular Hemoglobin 30 pg (25-35) Mean Corpuscular Hemoglobin Concent 35 g/dL (31-37) Red Cell Distribution Width 16.3 % (11.5-14.5) Platelet Count 279 x10^3/uL (140-400) Neutrophils (%) (Auto) 56 % (31-73) Lymphocytes (%) (Auto) 36 % (24-48) Monocytes (%) (Auto) 6 % (0-9) Eosinophils (%) (Auto) 1 % (0-3) Basophils (%) (Auto) 1 % (0-3) Neutrophils # (Auto) 2.8 x10^3/uL (1.8-7.7) Lymphocytes # (Auto) 1.8 x10^3/uL (1.0-4.8) Monocytes # (Auto) 0.3 x10^3/uL (0.0-1.1) Eosinophils # (Auto) 0.1 x10^3/uL (0.0-0.7) Basophils # (Auto) 0.0 x10^3/uL (0.0-0.2) Sodium Level 143 mmol/L (136-145) Potassium Level 3.1 mmol/L (3.5-5.1) Chloride Level 105 mmol/L (98-107) Carbon Dioxide Level 28 mmol/L (21-32) Anion Gap 10 (6-14) Blood Urea Nitrogen 9 mg/dL (7-20) Creatinine 0.9 mg/dL (0.6-1.0) Estimated GFR (Cockcroft-Gault) 68.0 Glucose Level 102 mg/dL (70-99) Calcium Level 9.1 mg/dL (8.5-10.1) Total Bilirubin 0.4 mg/dL (0.2-1.0) Direct Bilirubin 0.1 mg/dL (0.0-0.2) Aspartate Amino Transf (AST/SGOT) 20 U/L (15-37) Alanine Aminotransferase (ALT/SGPT) 29 U/L (14-59) Alkaline Phosphatase 117 U/L (46-116) Total Protein 7.7 g/dL (6.4-8.2) Albumin 4.0 g/dL (3.4-5.0) Lipase 68 U/L (73-393) Urine Collection Type Unknown Urine Color Yellow Urine Clarity Clear Urine pH 7.0 (<5.0-8.0) Urine Specific [place] >=1.030 (1.000-1.030) Urine Protein Negative mg/dL (NEG-TRACE) Urine Glucose (UA) Negative mg/dL (NEG) Urine Ketones (Stick) Negative mg/dL (NEG) Urine Blood Negative (NEG) Urine Nitrite Negative (NEG) Urine Bilirubin Negative (NEG) Urine Urobilinogen Dipstick 0.2 mg/dL (0.2 mg/dL) Urine Leukocyte Esterase Trace (NEG) Urine RBC 0 /HPF (0-2) Urine WBC 1-4 /HPF (0-4) Urine Squamous Epithelial Cells Mod /LPF Urine Bacteria 0 /HPF (0-FEW) Bedside Urine HCG, Qualitative Hcg negative (Negative) Assessment/Plan Assessment/Plan abd pain, biliary dyskinesia--EF 23% will need eliquis held for 5 days preop--will ask Heme to eval--heparin or lovenox bridge until surgery can be arranged as outpt if pt can tolerate diet, pain management BROOKS COLLAZO MD 01/05/21 1231: CONSULT Assessment/Plan Assessment/Plan Pt seen and examined. Agree with Ms. Junior's note Pt with c/o RUQ pain TTP RUQ will tentatively plan laparoscopic versus open aleja with grams pending holding eliquis. Thanks for consult! CHARMAINE JUNIOR APRN Jan 05, 2021 09:04 BROOKS COLLAZO MD Jan 05, 2021 12:31
[2021-01-05] MEDS ORDERED: traMADol 50 MG TABLET PO PRN (09:30)
[2021-01-05] MEDS ORDERED: ACETAMINOPHEN 325 MG TABLET. PO PRN (09:30)
--- NOTE | 2021-01-05 09:50 | PDOC2 ---
GI CONSULT Date of Service: DATE: 01/05/21 TIME: 09:50 Reason For Consult: biliary dyskinesia HPI: HPI: 45 y/o with RUQ pain radiating to back associated w/ n/v (undigested food 6 hours after eatin) x 2 weeks. See this morning w/ Dr. Murray. Outpt HIDA was negative for cholecystitis but showed decreased GB EF of 23%. Advised by our office to follow-up w/ surgery and/or come to ER w/ worsening symptoms. H/o GERD controlled w/ Prilosec. EGD in 02/2018 w/ normal esophagus, chronic gastritis (no biopsy), normal duodenum. Fundic gland polyps noted in 2015. Also h/o delayed gastric emptying (GES in 2018 w/ T1/2 2 hours). E-mycin discussed but trial not pursued due to allergy. Taking IV Reglan here. Normal colonoscopy in 2013. No dysphagia, hematemesis, weight loss, diarrhea, constipation, hematochezia, or melena. Fatty liver on imaging. Denies pancreas or PUD history. Factor V Leiden on Eliquis. Had Moderna COVID vaccine. PMH: PMH: depression/anxiety, Factor V Leiden, PE, UTI, breast cancer s/p chemo and rad, HLD, HTN lumpectomy, appendectomy, tubal ligation FH: Family History: Cancer (sister - breast, GM - ovarian), CVA, DM, Hypertension, Other (mother and uncler - Crohn's and UC) Social History: Smoke: Quit ALCOHOL: none ROS: GEN: Denies fevers, chills, sweats HEENT: Denies blurred vision, sore throat CV: Denies chest pain RESP: Denies shortness of air, cough GI: Per HPI : Denies hematuria, dysuria ENDO: Denies weight changes NEURO: Denies confusion, dizziness MSK: Denies weakness, joint pain/swelling SKIN: Denies jaundice, pruritus Vitals: Vitals: Vital Signs Date Time Temp Pulse Resp B/P (MAP) Pulse Ox O2 Delivery O2 Flow Rate FiO2 01/05/21 07:00 97.9 60 18 116/72 (87) 98 Room Air 97.9 Labs: Labs: Laboratory Tests Test 01/04/21 17:30 01/04/21 18:30 01/04/21 19:07 White Blood Count 5.0 x10^3/uL (4.0-11.0) Red Blood Count 4.04 x10^6/uL (3.50-5.40) Hemoglobin 12.1 g/dL (12.0-15.5) Hematocrit 34.1 % (36.0-47.0) Mean Corpuscular Volume 84 fL (79-100) Mean Corpuscular Hemoglobin 30 pg (25-35) Mean Corpuscular Hemoglobin Concent 35 g/dL (31-37) Red Cell Distribution Width 16.3 % (11.5-14.5) Platelet Count 279 x10^3/uL (140-400) Neutrophils (%) (Auto) 56 % (31-73) Lymphocytes (%) (Auto) 36 % (24-48) Monocytes (%) (Auto) 6 % (0-9) Eosinophils (%) (Auto) 1 % (0-3) Basophils (%) (Auto) 1 % (0-3) Neutrophils # (Auto) 2.8 x10^3/uL (1.8-7.7) Lymphocytes # (Auto) 1.8 x10^3/uL (1.0-4.8) Monocytes # (Auto) 0.3 x10^3/uL (0.0-1.1) Eosinophils # (Auto) 0.1 x10^3/uL (0.0-0.7) Basophils # (Auto) 0.0 x10^3/uL (0.0-0.2) Sodium Level 143 mmol/L (136-145) Potassium Level 3.1 mmol/L (3.5-5.1) Chloride Level 105 mmol/L (98-107) Carbon Dioxide Level 28 mmol/L (21-32) Anion Gap 10 (6-14) Blood Urea Nitrogen 9 mg/dL (7-20) Creatinine 0.9 mg/dL (0.6-1.0) Estimated GFR (Cockcroft-Gault) 68.0 Glucose Level 102 mg/dL (70-99) Calcium Level 9.1 mg/dL (8.5-10.1) Total Bilirubin 0.4 mg/dL (0.2-1.0) Direct Bilirubin 0.1 mg/dL (0.0-0.2) Aspartate Amino Transf (AST/SGOT) 20 U/L (15-37) Alanine Aminotransferase (ALT/SGPT) 29 U/L (14-59) Alkaline Phosphatase 117 U/L (46-116) Total Protein 7.7 g/dL (6.4-8.2) Albumin 4.0 g/dL (3.4-5.0) Lipase 68 U/L (73-393) Urine Collection Type Unknown Urine Color Yellow Urine Clarity Clear Urine pH 7.0 (<5.0-8.0) Urine Specific [place] >=1.030 (1.000-1.030) Urine Protein Negative mg/dL (NEG-TRACE) Urine Glucose (UA) Negative mg/dL (NEG) Urine Ketones (Stick) Negative mg/dL (NEG) Urine Blood Negative (NEG) Urine Nitrite Negative (NEG) Urine Bilirubin Negative (NEG) Urine Urobilinogen Dipstick 0.2 mg/dL (0.2 mg/dL) Urine Leukocyte Esterase Trace (NEG) Urine RBC 0 /HPF (0-2) Urine WBC 1-4 /HPF (0-4) Urine Squamous Epithelial Cells Mod /LPF Urine Bacteria 0 /HPF (0-FEW) Bedside Urine HCG, Qualitative Hcg negative (Negative) Allergies: Coded Allergies: clindamycin (Verified Allergy, Intermediate, 11/14/17) doxycycline (Verified Allergy, Intermediate, 11/11/17) NSAIDS (Non-Steroidal Anti-Inflamma (Verified Adverse Reaction, Intermediate, 11/11/17) pt. states she cannot take while on Coumadin Medications: Current Medications Medications (Trade) Dose Ordered Sig/Gennaro Route PRN Reason Start Time Stop Time Status Last Admin Dose Admin Morphine Sulfate (Morphine Sulfate) 5 mg 1X ONCE IV 01/04/21 17:00 01/04/21 17:01 DC 01/04/21 17:53 Ondansetron HCl (Zofran) 4 mg 1X ONCE IVP 01/04/21 17:00 01/04/21 17:01 DC 01/04/21 17:51 Iohexol (Omnipaque 300 Mg/ml) 75 ml 1X ONCE IV 01/04/21 18:15 01/04/21 18:16 DC 01/04/21 18:07 Morphine Sulfate (Morphine Sulfate) 2 mg PRN Q2HR PRN IVP PAIN 01/04/21 20:30 01/05/21 20:29 01/05/21 00:30 Metoclopramide HCl (Reglan Vial) 10 mg 1X ONCE IVP 01/04/21 21:00 01/04/21 21:01 DC 01/04/21 20:58 Morphine Sulfate (Morphine Sulfate) 4 mg 1X ONCE IVP 01/04/21 21:00 01/04/21 21:01 DC 01/04/21 20:58 Cyclobenzaprine HCl (Flexeril) 5 mg QHS PO 01/05/21 00:00 01/05/21 00:28 Pantoprazole Sodium (Protonix) 40 mg HS PO 01/05/21 00:00 01/05/21 00:28 Apixaban (Eliquis) 5 mg BID PO 01/05/21 00:00 01/05/21 00:28 Metoclopramide HCl (Reglan Vial) 10 mg PRN Q6HRS PRN IVP NAUSEA/VOMITING 01/04/21 23:45 01/05/21 07:07 Amitriptyline HCl (Elavil) 40 mg HS PO 01/05/21 00:00 01/05/21 00:28 Anastrozole (Arimidex) 1 mg HS PO 01/05/21 00:00 01/05/21 00:41 Atorvastatin Calcium (Lipitor) 20 mg HS PO 01/05/21 00:00 01/05/21 00:29 Metoprolol Succinate (Toprol Xl) 25 mg HS PO 01/05/21 00:00 01/05/21 00:29 Info (Anti-Coagulation Monitoring By Pharmacy) 1 each PRN DAILY PRN MC PER PROTOCOL 01/04/21 23:45 01/05/21 00:59 Imaging: Imaging: CT A/P IMPRESSION: Linear atelectasis or scarring posteriorly at the right lung base. 1.4 cm nodular density in the right breast possibly related to previous history of right breast cancer. Recommend clinical correlation and appropriate follow- up. No abnormality seen in the abdomen or pelvis. CXR IMPRESSION: No acute radiographic abnormality. Abd US IMPRESSION: Findings suggestive of hepatic steatosis. CBD 4mm. HIDA IMPRESSION: * No scintigraphic evidence of acute cholecystitis or high grade biliary obstruction. * Gallbladder ejection fraction is 23 percent which is decreased. Can be seen with biliary dyskinesia. PE: GEN: NAD HEENT: Atraumatic, PERRL LUNGS: CTAB HEART: RRR ABD: NABS, soft, RUQ discomfort EXTREMITY: No edema SKIN: No rashes, no jaundice NEURO/PSYCH: A & O 3 A/P: A/P: RUQ pain, n/v Low GB EF Hypokalemia, mildly elevated Alk Phos GERD, gastroparesis - on PPI CRC screen - UTD (2013) Fatty liver H/o breast cancer Factor V Leiden on Eliquis (last dose 01/04) -- D/w Dr. Núñez and Liliya/surgery - biliary dyskinesia, not acute cholecystitis. Can plan surgery soon but must remain off Eliquis for 5 days per surgery (took last night). If can tolerate diet (low fat suggested), consider discharge soon and follow-up w/ surgery for outpt cholecystectomy. Hematology asked to comment re: Eliquis situation. IVF per primary. Continue PPI. Reports allergy to e-mycin. Reglan not a good long-term option for gastroparesis. MICHAEL WARNER Jan 05, 2021 09:50
[2021-01-05 10:51] VITALS: BP 134/85
--- NOTE | 2021-01-05 12:24 | NUR ---
SW following. Discussed with RN, pt from home, room air, clear liquid diet. Pt needing to stop Eliquis for 5 days before surgery, some discussion about pt discharging home if tolerates diet and returning for surgery outpatient. RN advised no SW needs at this time. SW will continue to follow.
[2021-01-05 15:00] VITALS: BP 129/82
[2021-01-05] MEDS ORDERED: POTASSIUM BICARB 20 MEQ EFFERVESCENT TABLET. PO ONE (18:00)
[2021-01-05] MEDS ORDERED: ONDANSETRON ODT 4 MG TAB.RAPDIS. PO PRN (18:00)
[2021-01-05] MEDS ORDERED: ONDA4TAB12 PO (18:07)
[2021-01-05] MEDS ORDERED: TRAM50TA PO ×3 (18:07→18:53)
[2021-01-05] MEDS ORDERED: METO10TA81 PO (18:07)
--- NOTE | 2021-01-05 19:15 | PDOC3 ---
Discharge Summary Visit Information Date of Admission: Jan 04, 2021 Date of Discharge: Jan 05, 2021 Admitting Diagnosis: Intractable abdominal pain, nausea and vomiting Final Diagnosis Problems Medical Problems: (1) Abdominal pain Status: Acute (2) Nausea & vomiting Status: Acute Brief Hospital Course Allergies Allergies Coded Allergies Type Severity Reaction Last Updated Verified clindamycin Allergy Intermediate 11/14/17 Yes doxycycline Allergy Intermediate 11/11/17 Yes NSAIDS (Non-Steroidal Anti-Inflamma Adverse Reaction Intermediate 11/11/17 Yes Vital Signs Vital Signs Date Time Temp Pulse Resp B/P (MAP) Pulse Ox O2 Delivery O2 Flow Rate FiO2 01/05/21 15:00 97.7 68 16 129/82 (98) 96 Room Air 97.7 Lab Results Laboratory Tests Test 01/04/21 17:30 01/04/21 18:30 01/04/21 19:07 White Blood Count 5.0 x10^3/uL (4.0-11.0) Red Blood Count 4.04 x10^6/uL (3.50-5.40) Hemoglobin 12.1 g/dL (12.0-15.5) Hematocrit 34.1 % (36.0-47.0) Mean Corpuscular Volume 84 fL (79-100) Mean Corpuscular Hemoglobin 30 pg (25-35) Mean Corpuscular Hemoglobin Concent 35 g/dL (31-37) Red Cell Distribution Width 16.3 % (11.5-14.5) Platelet Count 279 x10^3/uL (140-400) Neutrophils (%) (Auto) 56 % (31-73) Lymphocytes (%) (Auto) 36 % (24-48) Monocytes (%) (Auto) 6 % (0-9) Eosinophils (%) (Auto) 1 % (0-3) Basophils (%) (Auto) 1 % (0-3) Neutrophils # (Auto) 2.8 x10^3/uL (1.8-7.7) Lymphocytes # (Auto) 1.8 x10^3/uL (1.0-4.8) Monocytes # (Auto) 0.3 x10^3/uL (0.0-1.1) Eosinophils # (Auto) 0.1 x10^3/uL (0.0-0.7) Basophils # (Auto) 0.0 x10^3/uL (0.0-0.2) Sodium Level 143 mmol/L (136-145) Potassium Level 3.1 mmol/L (3.5-5.1) Chloride Level 105 mmol/L (98-107) Carbon Dioxide Level 28 mmol/L (21-32) Anion Gap 10 (6-14) Blood Urea Nitrogen 9 mg/dL (7-20) Creatinine 0.9 mg/dL (0.6-1.0) Estimated GFR (Cockcroft-Gault) 68.0 Glucose Level 102 mg/dL (70-99) Calcium Level 9.1 mg/dL (8.5-10.1) Total Bilirubin 0.4 mg/dL (0.2-1.0) Direct Bilirubin 0.1 mg/dL (0.0-0.2) Aspartate Amino Transf (AST/SGOT) 20 U/L (15-37) Alanine Aminotransferase (ALT/SGPT) 29 U/L (14-59) Alkaline Phosphatase 117 U/L (46-116) Total Protein 7.7 g/dL (6.4-8.2) Albumin 4.0 g/dL (3.4-5.0) Lipase 68 U/L (73-393) Urine Collection Type Unknown Urine Color Yellow Urine Clarity Clear Urine pH 7.0 (<5.0-8.0) Urine Specific [place] >=1.030 (1.000-1.030) Urine Protein Negative mg/dL (NEG-TRACE) Urine Glucose (UA) Negative mg/dL (NEG) Urine Ketones (Stick) Negative mg/dL (NEG) Urine Blood Negative (NEG) Urine Nitrite Negative (NEG) Urine Bilirubin Negative (NEG) Urine Urobilinogen Dipstick 0.2 mg/dL (0.2 mg/dL) Urine Leukocyte Esterase Trace (NEG) Urine RBC 0 /HPF (0-2) Urine WBC 1-4 /HPF (0-4) Urine Squamous Epithelial Cells Mod /LPF Urine Bacteria 0 /HPF (0-FEW) Bedside Urine HCG, Qualitative Hcg negative (Negative) Brief Hospital Course Ms. Styles is a 45-year-old female with past medical history of factor V Leiden breast cancer comes to the ED 2 days in a row for what she describes as intractable abdominal pain she had right upper quadrant ultrasound and HIDA scan on 01/03/2021 that showed fatty liver otherwise fairly unremarkable gallbladder ultrasound though on HIDA scan EF was 23% possibility of biliary dyskinesia, though negative for cholecystitis. She did eat bagels every morning for the last week and a donut yesterday morning with coffee. Counseled on low-fat diet and discussed with GI and general surgery nurse practitioner bedside. Had Moderna COVID vaccine. She was seen in consultation by gastroenterology as well as general surgery. Historically has GERD controlled w/ Prilosec. EGD in 02/2018 w/ normal esophagus, chronic gastritis (no biopsy), normal duodenum. Fundic gland polyps noted in 2015. Normal colonoscopy in 2013. Also h/o delayed gastric emptying (GES in 2018 w/ T1/2 2 hours). Erythromycin discussed but trial not pursued due to allergy to tetracyclines. Discussed with GI prior to her breast cancer treatments in 2015 she had a normal gastric emptying study. She improved with IV Reglan while inpatient and took PO well. Counseled the cholecystectomy would be elective surgery. Bridging on Lovenox therapy and there is no communication to improve her intractable nausea and vomiting now metoclopramide clearly did this is consistent with her 2018 gastric emptying study. She felt her pain was also improved with tramadol. Was given referral to follow-up outpatient with hematology oncology as she has been maintained on Eliquis for prior history of pulmonary embolism in the past has not had hematology follow-up. Problem list: Intractable abdominal pain -notes 2-week history. Counseled on low-fat diet and a low processed carbohydrate diet. No signs of acute cholecystitis I discussed outpatient referral for consideration of cholecystectomy is more appropriate and she would need to be bridged on Lovenox therapy anyway given her history of pulmonary embolism and factor V Leiden. I discussed with GI and general surgery. Factor V Leiden - with h/o pulmonary embolism, on eliquis. Heme onc was consulted. breast cancer - on arimidex D/c home and schedule outpatient elective cholecystectomy Greater than 75 minutes spent on same day admit and d/c Discharge Information Condition at Discharge: Improved Follow Up: Weeks (1) Disposition/Orders: D/C to Home Scheduled Amitriptyline Hcl (Amitriptyline Hcl) 10 Mg Tablet, 40 MG PO HS for depression, (Reported) Entered as Reported by: JESSIE SANDOVAL on 01/04/21 1474 Last Action: Continued on 01/04/212342 by JESSIE SPIESS Anastrozole (Arimidex) 1 Mg Tablet, 1 TAB PO HS for breast cancer for 30 Days, #30 Ref 0 (Reported) Entered as Reported by: JESSIE SANDOVAL on 01/04/212323 Last Taken: Unknown Dose on 01/03/21 Last Action: Continued on 01/04/212342 by JESSIE SANDOVAL Apixaban (Eliquis) 5 Mg Tablet, 5 MG PO BID for factor 5 , (Reported) Entered as Reported by: JESSIE SANDOVAL on 01/04/212323 Last Action: Continued on 01/04/212343 by JESSIE SANDOVAL Atorvastatin Calcium (Lipitor) 20 Mg Tablet, 1 TAB PO HS for Factor 5, #90 Ref 1 (Reported) Entered as Reported by: JESSIE SANDOVAL on 01/04/212323 Last Taken: Unknown Dose on 01/03/21 Last Action: Continued on 01/04/212342 by JESSIE SANDOVAL Cyclobenzaprine Hcl (Cyclobenzaprine Hcl) 5 Mg Tablet, 1 TAB PO QHS for muscle relaxer, #30 (Reported) Entered as Reported by: JESSIE SANDOVAL on 01/04/212323 Last Taken: Unknown Dose on 01/03/21 Last Action: Converted on 01/04/212342 by JESSIE SANDOVAL Enoxaparin Sodium (Lovenox) 80 Mg/0.8 Ml Disp.syrin, 80 MG SQ BID for ANTI- COAGULANT, (Reported) Entered as Reported by: VIOLET PAZ on 01/07/21 1316 Metoclopramide Hcl (Reglan) 10 Mg Tablet, 10 MG PO BIDAC for Gastroparesis for 30 Days, #60 Ref 0 Prescribed by: DORIS ANDREWS MD on 01/05/21 1807 Metoprolol Succinate (Metoprolol Succinate ( Xl )) 25 Mg Tab.er.24h, 1 TAB PO HS for factor 5, #30 Ref 5 (Reported) Entered as Reported by: JESSIE SANDOVAL on 01/04/212323 Last Taken: Unknown Dose on 01/03/21 Last Action: Continued on 01/04/212342 by JESSIE SANDOVAL Omeprazole Magnesium (Prilosec Otc) 20 Mg Tablet.dr, 40 MG PO HS for GERD, (Reported) Entered as Reported by: JESSIE SANDOVAL on 01/04/212323 Last Taken: Unknown Dose on 01/03/21 Last Action: Converted on 01/04/212342 by JESSIE SANDOVAL Oxybutynin Chloride (Oxybutynin Chloride Er) 15 Mg Tab.er.24, 1 TAB PO HS for over reactive bladder, #90 Ref 1 (Reported) Entered as Reported by: JESSIE SANDOVAL on 01/04/212323 Last Taken: Unknown Dose on 01/03/21 Last Action: Converted on 01/04/212342 by JESSIE SANDOVAL Scheduled PRN Hydrocodone Bit/Acetaminophen (Hydrocodone-Apap 5-325 ) 1 Tab Tablet, 1 TAB PO PRN Q6HRS PRN for PAIN, Ref 0 (Reported) Entered as Reported by: VIOLET PAZ on 01/07/21 1316 Ondansetron (Ondansetron Odt) 4 Mg Tab.rapdis, 4 MG PO PRN Q4HRS PRN for NAUSEA for 30 Days, #30 Ref 5 Prescribed by: DORIS ANDREWS MD on 01/05/211806 Discontinued Medications Apixaban (Eliquis) 5 Mg Tablet, 5 MG PO BID for factor 5, (Reported) Entered as Reported by: JESSIE SANDOVAL on 01/04/212323 Last Taken: Unknown Dose on 01/03/21 Last Action: New Order on 01/04/212323 by JESSIE SANDOVAL Clonazepam (Clonazepam) 1 Mg Tablet, 1 TAB PO QHS, #30 (Reported) Entered as Reported by: KEYONA PEDERSON on 11/11/172021 Last Action: Discontinued on 01/04/212323 by JESSIE SANDOVAL Fluoxetine Hcl (Fluoxetine Hcl) 40 Mg Capsule, 40 MG PO QHS, (Reported) Entered as Reported by: KEYONA PEDERSON on 11/11/172021 Last Action: Discontinued on 01/04/212323 by JESSIE SANDOVAL Hydroxyzine Hcl (Hydroxyzine Hcl) 10 Mg Tablet, 10 MG PO QHS, (Reported) Entered as Reported by: KEYONA PEDERSON on 11/11/172021 Last Action: Discontinued on 01/04/212323 by JESSIE SANDOVAL Mirtazapine (Mirtazapine) 30 Mg Tablet, 1 TAB PO QHS, #30 Ref 1 (Reported) Entered as Reported by: KEYONA PEDERSON on 11/11/172021 Last Action: Discontinued on 01/04/212323 by JESSIE SANDOVAL Pantoprazole Sodium (Protonix) 20 Mg Tablet.dr, 40 MG PO QHS, (Reported) Entered as Reported by: KEYONA PEDERSON on 11/11/172021 Last Action: Discontinued on 01/04/212323 by JESSIE SANDOVAL Warfarin Sodium (Warfarin Sodium) 4 Mg Tablet, 1 TAB PO HS, #90 Ref 1 (Reported) Entered as Reported by: KEYONA PEDERSON on 11/11/172021 Last Action: Discontinued on 01/04/212323 by JESSIE SANDOVAL Justicifation of Admission Dx: Justifications for Admission: Justification of Admission Dx: Yes DORIS ANDREWS MD Jan 05, 2021 19:15
--- NOTE | 2021-01-05 19:54 | NUR ---
Pt was given discharge instructions, follow up information, new prescriptions and teaching. Pharmacy received scripts. Iv removed. Pt is stable. Alert x4. Mother at bedside when giving discharge instructions. Pt left via wheelchair escorted by this nurse to vehicle, mother driving her home. Pt left at 1950, all belongings left with patient at time of discharge.
[2021-01-07] MEDS ORDERED: ENOX80DI SQ (13:16)
[2021-01-07] MEDS ORDERED: HYDR-2761 PO (13:16)
[2021-01-10] MEDS ORDERED: HYDR-2761 PO (11:16)
== END 2021-01-05 19:30 | disposition home or self-care (01) ==
LOC: ER 15:17 → 4 NORTH 20:17
PROVIDERS: ADMIT Family Medicine; ATTEND Family Medicine
DX: J98.11 Atelectasis (principal); C50.919 Malignant neoplasm of unspecified site of unspecified female breast; D68.51 Activated protein C resistance; E78.5 Hyperlipidemia, unspecified; F32.9 Major depressive disorder, single episode, unspecified; F41.9 Anxiety disorder, unspecified; I10 Essential (primary) hypertension; K21.9 Gastro-esophageal reflux disease without esophagitis; K29.50 Unspecified chronic gastritis without bleeding; K31.7 Polyp of stomach and duodenum; K76.0 Fatty (change of) liver, not elsewhere classified; K81.1 Chronic cholecystitis; K82.8 Other specified diseases of gallbladder; N39.0 Urinary tract infection, site not specified; Z79.01 Long term (current) use of anticoagulants; Z85.3 Personal history of malignant neoplasm of breast; Z87.891 Personal history of nicotine dependence; Z86.711 Personal history of pulmonary embolism; Z83.3 Family history of diabetes mellitus; Z92.21 Personal history of antineoplastic chemotherapy; Z90.49 Acquired absence of other specified parts of digestive tract
CPT/HCPCS: 36415; 71045; 74177; 80048; 80076; 81001; 81025; 83690; 85025; 87086; 96372; 96374; 96375; 96376; 99285; G0378; J1650; J2270; J2405; J2765; Q9967; G0379

== ENCOUNTER 2021-01-10 08:44 | Day surgery (SDC) | payer OTHER ==
[~2021-01-10] VITALS: Ht 154.9 cm; Wt 77.7 kg
[~2021-01-10 08:44] MED LIST changes: +AMIT10TA PO; +ANAS1TAB47 PO; +APIX5TAB PO; +ATOR20TA PO; +CYCL5TAB PO; +DEXAMETHASONE SOD PHOS 4 MG/ML VIAL ONE; +ENOX80DI SQ; +GLYCOPYRROLATE 1 MG/5 ML VIAL. ONE; +HYDR-2761 PO; +IV RINGERS,LACTATED 1000ML 1,000 ML IV SCH; +KETOROLAC 30 MG/ML VIAL. ONE; +LIDOCAINE 1% PF 5 ML VIAL. ONE; +METO-239 PO; +METO10TA81 PO; +MIDAZOLAM HCL/PF 2 MG/2 ML VIAL. ONE; +NEOSTIGMINE 10 MG/10 ML VIAL. ONE; +OMEP20TA63 PO; +ONDA4TAB12 PO; +ONDANSETRON PF 4 MG/2 ML VIAL. ONE; +OXYB15TA18 PO; +PHENYLEPHRINE in 0.9% NACL PF 1 MG/10 ML SYRINGE. IV ONE; +PROCHLORPERAZINE 10 MG/2 ML VIAL. IVP PRN; +PROPOFOL 10 MG/ML (20ML) VIAL. IV ONE; +ROCURONIUM 50 MG/5 ML VIAL. ONE; +SUCCINYLCHOLINE 200 MG/10 ML VIAL. ONE; +TRAM50TA PO; +ceFAZolin SODIUM IV Push 1 GM VIAL. IVP PRN; +ePHEDrine PF IN SALINE 50 MG/10 ML SYRINGE. IV ONE; +fentaNYL PF VIAL 100 MCG/2 ML VIAL IVP PRN; +fentaNYL PF VIAL 250 MCG/5 ML VIAL ONE
[2021-01-10] MEDS ORDERED: SURGICEL HEMOSTAT 4X8 EACH. ONE (08:47)
[2021-01-10] MEDS ORDERED: IOHEXOL 300 MG/ML 50 ML VIAL. ONE (08:47)
[2021-01-10] MEDS ORDERED: BUPIVACAINE MPF 0.5% 30 ML VIAL. ONE (08:47)
[2021-01-10 09:12] VITALS: BP 125/72
--- NOTE | 2021-01-10 11:12 | RAD ---
INDICATION: Reason: CHOLANGIOGRAMS IN OR WITH C-ARM,. Fluoro for procedure. IMPRESSION: Fluoroscopy was utilized by the clinical service to assist with their procedure. There are 2 saved images/series. The limited saved images show cannulation of the cystic duct with opacification of the common bile du ct and left and right intrahepatic bile ducts as well as opacification of the duodenum. No filling de fect identified. 0.11 minutes of fluoroscopy time was used. This dictation is for the usage of fluoroscopy only. Please see the clinical service's procedure note for detail on the procedure. Electronically signed by: Miles Masters MD (01/10/2021 11:09 AM) [id number]
--- NOTE | 2021-01-10 11:13 | PDOC4 ---
Operative Note Operative Note Operative Note: Preoperative Diagnosis: Biliary dyskinesia Postoperative Diagnosis: Same Procedure: Laparoscopic cholecystectomy with intraoperative cholangiogram Surgeons: Ankit Customer Service Manager: Weston DAVIDSON Anesthesia: Gen. Estimated Blood Loss: 10 mL Specimen: Gallbladder to pathology Drains: None Complications: None Indications: The patient is a 45-year-old female with clinical and radiographic evidence of biliary dyskinesia. Surgical treatment was offered by means of a laparoscopic cholecystectomy. The risks of surgery were discussed which include bleeding, infection, bile duct injury, bile leak, pain, the potential for additional surgeries or procedures. The patient understands and would like to proceed. Description: The patient was taken to the operating room and laid supine on the operating table. General anesthesia was performed. The abdomen was prepped with ChloraPrep and draped in a standard surgical fashion. A small incision was made to the patient's right of the umbilicus due to a prior umbilical scar. Through this entry was made in the abdominal cavity the visualized 5 mm port. Pneumoperitoneum was created and the laparoscope was introduced. In the upper midabdomen a 5 mm trocar was inserted and in the right upper quadrant two 2.3 mm mini lap graspers were inserted. The gallbladder was retracted cephalad. The cystic duct was dissected free from surrounding tissues. One clip was placed on the duct near the gallbladder junction. An opening was made in the duct and a cholangiocatheter placed within and secured with a clip. Using contrast dye and fluoroscopy an intraoperative cholangiogram was performed that appeared unremarkable. The clip and catheter were then withdrawn. Three clips were placed on the cystic duct and it was divided. The cystic artery was then identified, dissected free, doubly clipped and divided as well. The gallbladder was then mobilized away from the liver with cautery. The superior 5 millimeter trocar was exchanged for an 11 millimeter trocar. The gallbladder was then placed in an endoscopic bag and extracted at the superior trocar site. The fascia there was closed with an 0 Vicryl suture and infiltrated with 0.5% marcaine. All blood and irrigation fluid was suctioned and hemostasis was good. The remaining ports were removed and the pneumoperitoneum was relieved. The skin incisions were closed using 4-0 Monocryl suture. Steri-Strips and dressings were then applied. The patient tolerated the procedure well and was sent to the recovery room in stable condition. At the end of the case all counts were correct. ROMINA OHARA MD Jan 10, 2021 11:12
[2021-01-10] MEDS ORDERED: HYDR-2761 PO (11:16)
--- NOTE | 2021-01-10 11:20 | DISCH ---
DISCHARGE INSTRUCTIONS Condition on Discharge Condition on Discharge: Stable Activity After Discharge Activity Instructions for Disc: Other, see below (no lifting over 20 lbs X 2 weeks, no driving while taking pain meds) Diet after Discharge Diet after Discharge: Regular Wound Incision Care Wound/Incision Care: Other, see below (may remove bandaids and shower) Follow-Up Follow up with: Dr Ohara in 2 weeks in office ROMINA OHARA MD Jan 10, 2021 11:20
[2021-01-10] MEDS ORDERED: MORPHINE SULFATE 2 MG/ML INJ. ONE (11:30)
[2021-01-10] MEDS ORDERED: HYDROmorphone 2 MG/ML VIAL ONE (11:31)
[2021-01-10] MEDS: MORPHINE SULFATE 2 MG/ML INJ. IVP PRN ×2 (11:34→11:49)
[2021-01-10] MEDS ORDERED: ALBUTEROL SULFATE 2.5 MG/3 ML NEBU. ONE (11:36)
[2021-01-10] MEDS: HYDROmorphone 2 MG/ML VIAL IVP PRN ×3 (11:42→12:06)
[2021-01-10] MEDS ORDERED: ALBUTEROL SULFATE 2.5 MG/3 ML NEBU. NEB ONE (11:45)
[2021-01-10] MEDS ORDERED: HYDROcodone/APAP 5/325MG 1 TAB TABLET PO ONE ×2 (12:00)
[2021-01-10] MEDS ORDERED: PROCHLORPERAZINE 10 MG/2 ML VIAL. ONE (12:14)
[2021-01-10 12:44] VITALS: BP 140/75
--- NOTE | 2021-01-12 18:09 | PATHOLOGY ---
[facility] Accession Number: [id number] . 01 Material submitted: . gallbladder - GALLBLADDER . 01 Clinical history: . LAP CATRACHITA W/ GRAMS BILIARY DYSKENSIA . 02 Diagnosis: Gallbladder, laparoscopic cholecystectomy: - Chronic cholecystitis. (JPM:jumana; 01/12/2021) S 01/12/2021 1438 Local . 02 Comment: There are no calculi identified within the gallbladder lumen or specimen container. There is no evidence of malignancy. (JPM:jumana; 01/12/2021) . 02 Electronically signed: . Young Medel MD, Pathologist NPI- [id number] . 01 Gross description: . Fixative: Formalin Labeled: Gallbladder per requisition Specimen received: Intact gallbladder Dimensions: 7.4 x 2.8 x 2.6 cm Serosa: Green-hawthorne Lymph node: None identified Mucosa: Velvety, bile-stained Average wall thickness: 0.1 Calculi: None present Abnormalities: None identified . A1- Track Supervisor body, fundus, and the cystic duct margin. ([facility]; 01/10/2021) NRI/NRI 01/10/2021 1807 Local . 02 CPT . 481975 Specimen Comment: A courtesy copy of this report has been sent to [phone] Specimen Comment: [phone] Specimen Comment: Report sent to / DR ROSAS Performed at: 01 [facility] [address], [place] [id number] MD Derrick Hernandez MD Phone: [phone] Performed at: 02 [facility] [address] [place], [place] [id number] MD Young Medel MD Phone: [phone]
== END 2021-01-10 13:25 | disposition home or self-care (01) ==
LOC: SURG 08:44
PROVIDERS: ATTEND Surgery
DX: K82.8 Other specified diseases of gallbladder (principal); I10 Essential (primary) hypertension; E78.00 Pure hypercholesterolemia, unspecified; K21.9 Gastro-esophageal reflux disease without esophagitis; F41.9 Anxiety disorder, unspecified; F32.9 Major depressive disorder, single episode, unspecified; Z85.3 Personal history of malignant neoplasm of breast; Z87.891 Personal history of nicotine dependence; Z79.899 Other long term (current) drug therapy; Z98.890 Other specified postprocedural states; Z88.8 Allergy status to other drugs, medicaments and biological substances
CPT/HCPCS: 47563; 74300; 94640; A4213; A4314; A4364; A4930; A6219; C1887; J0690; J0780; J1100; J1170; J2250; J2270; J2405; J2704; J2710; J3010; J3490; J7613; Q9967; A4452; A4657; J0330; J1885; J2370

== ENCOUNTER 2021-01-21 10:46 | Emergency (ER) | payer OTHER ==
[~2021-01-21] VITALS: Ht 154.9 cm; Wt 79.5 kg
[~2021-01-21 10:46] MED LIST changes: -DEXAMETHASONE SOD PHOS 4 MG/ML VIAL ONE; -GLYCOPYRROLATE 1 MG/5 ML VIAL. ONE; -IV RINGERS,LACTATED 1000ML 1,000 ML IV SCH; -KETOROLAC 30 MG/ML VIAL. ONE; -LIDOCAINE 1% PF 5 ML VIAL. ONE; -MIDAZOLAM HCL/PF 2 MG/2 ML VIAL. ONE; -NEOSTIGMINE 10 MG/10 ML VIAL. ONE; -ONDANSETRON PF 4 MG/2 ML VIAL. ONE; -PHENYLEPHRINE in 0.9% NACL PF 1 MG/10 ML SYRINGE. IV ONE; -PROCHLORPERAZINE 10 MG/2 ML VIAL. IVP PRN; -PROPOFOL 10 MG/ML (20ML) VIAL. IV ONE; -ROCURONIUM 50 MG/5 ML VIAL. ONE; -SUCCINYLCHOLINE 200 MG/10 ML VIAL. ONE; -ceFAZolin SODIUM IV Push 1 GM VIAL. IVP PRN; -ePHEDrine PF IN SALINE 50 MG/10 ML SYRINGE. IV ONE; -fentaNYL PF VIAL 100 MCG/2 ML VIAL IVP PRN; -fentaNYL PF VIAL 250 MCG/5 ML VIAL ONE
[2021-01-21] MEDS ORDERED: fentaNYL PF VIAL 100 MCG/2 ML VIAL IVP ONE (11:15)
[2021-01-21] MEDS ORDERED: IV NORMAL SALINE 1000ML BAG 1,000 ML IV SCH (11:15)
--- NOTE | 2021-01-21 11:35 | PHYS DOC ---
Past Medical History Additional Past Medical Histor: Factor V Leiden, Breast Cx Past Surgical History: Appendectomy, Tubal ligation, Other Smoking Status: Former Smoker General Adult EDM: Chief Complaint: ABDOMINAL PAIN HPI: HPI: Patient is a 45 year old female who presents with had a cholecystectomy on January 10 and was post to have a follow-up visit with Dr. Pham today but they told her to come here instead. Of the last 2 days she has had increased right upper quadrant pain she states is a sharp type pain. She took hydrocodone yesterday and is currently out of it. She states she has been having hard stools and is constipated. She states she has not had vomiting since 5 days ago. She has a history of factor V, breast cancer, appendectomy, former smoker. She rates her pain a 10 out of 10. Review of Systems: Review of Systems: Constitutional: Denies fever or chills. [] Eyes: Denies change in visual acuity. [] HENT: Denies nasal congestion or sore throat. [] Respiratory: Denies cough or shortness of breath. [] Cardiovascular: Denies chest pain or edema. [] GI: +abdominal pain, +nausea, denies vomiting, bloody stools or diarrhea. + Constipation [] : Denies dysuria. [] Musculoskeletal: Denies back pain or joint pain. [] Integument: Denies rash. [] Neurologic: Denies headache, focal weakness or sensory changes. [] Endocrine: Denies polyuria or polydipsia. [] Lymphatic: Denies swollen glands. [] Psychiatric: Denies depression or anxiety. [] Heart Score: C/O Chest Pain: No Risk Factors: Risk Factors: DM, Current or recent (<one month) smoker, HTN, HLP, family history of CAD, obesity. Risk Scores: Score 0 - 3: 2.5% MACE over next 6 weeks - Discharge Home Score 4 - 6: 20.3% MACE over next 6 weeks - Admit for Clinical Observation Score 7 - 10: 72.7% MACE over next 6 weeks - Early Invasive Strategies Current Medications: Current Medications Medications (Trade) Dose Ordered Sig/Gennaro Start Time Stop Time Status Last Admin Dose Admin Fentanyl Citrate (Fentanyl 2ml Vial) 50 mcg 1X ONCE 01/21/21 11:15 01/21/21 11:16 DC Sodium Chloride 1,000 ml @ 1,000 mls/hr Q1H 01/21/21 11:15 01/21/21 12:14 Allergies: Allergies: Allergies Coded Allergies Type Severity Reaction Last Updated Verified clindamycin Allergy Intermediate 01/10/21 Yes doxycycline Allergy Intermediate 01/10/21 Yes NSAIDS (Non-Steroidal Anti-Inflamma Adverse Reaction Intermediate 01/10/21 Yes Physical Exam: PE: Constitutional: Well developed, well nourished, no acute distress, non-toxic appearance. [] HENT: Normocephalic, atraumatic, bilateral external ears normal, oropharynx moist, no oral exudates, nose normal. [] Eyes: PERRLA, EOMI, conjunctiva normal, no discharge. [] Neck: Normal range of motion, no tenderness, supple, no stridor. [] Cardiovascular:Heart rate regular rhythm, no murmur [] Lungs & Thorax: Bilateral breath sounds clear to auscultation [] Abdomen: Bowel sounds normal, soft, right upper quadrant tenderness, no masses, no pulsatile masses. [] Skin: Warm, dry, no erythema, no rash. [] Back: No tenderness, no CVA tenderness. [] Extremities: No tenderness, no cyanosis, no clubbing, ROM intact, no edema. [] Neurologic: Alert and oriented X 3, normal motor function, normal sensory function, no focal deficits noted. [] Psychologic: Affect normal, judgement normal, mood normal. [] EKG: EK and read by Dr. Heart as a sinus rhythm and no STEMI Radiology/Procedures: Radiology/Procedures: [] Impression: [facility] [address] [address] IMAGING REPORT Signed PATIENT: NAOMY EMDOND AACCOUNT: [id number] : 1975 LOCATION: ER AGE: 45 SEX: F EXAM STATUS: PRE ER ORD. PHYSICIAN: OTONIEL CHURCHILL APRN REASON: worsening ruq pain after aleja 01/10 PROCEDURE: CT ABD PELV W/ IV CONTRST ONLY CT of the abdomen and pelvis with contrast 01/21/2021 12:44 PM Indication: Reason: worsening ruq pain after aleja 01/10 / Spl. Instructions: [id number] 75ML [phone] / History: Comparison study: CT abdomen and pelvis January 04, 2021 Technique: Multidetector CT imaging of the abdomen and pelvis was performed following the administration of IV contrast. Findings: The partially visualized lung bases demonstrate no acute abnormality. The liver, spleen, bilateral adrenal glands, bilateral kidneys, and pancreas, are grossly unremarkable. There is no bowel obstruction. No evidence of acute inflammatory change involving visualized bowel is identified. Prior appendectomy noted. Bladder is grossly unremarkable. No free fluid or free air is seen in the abdomen or pelvis. No acute osseous changes are identified. Impression: Postoperative changes following recent cholecystectomy. Prior appendectomy noted. No evidence of acute intra-abdominal abnormality is identified. CT DOSING PQRS STATEMENT: One or more of the following individualized dose reduction techniques were utilized for this examination: 1. Automated exposure control 2. Adjustment of the mA and/or kV according to patient size 3. Use of iterative reconstruction technique Electronically signed by: Mario Gu MD (01/21/2021 12:51 PM) [id number] DICTATED and SIGNED BY: MARIO GU MD DATE: 01/21/21 [id number] 0 Course & Med Decision Making: Course & Med Decision Making Pertinent Labs and Imaging studies reviewed. (See chart for details) See HPI. Alert and oriented x4. Ambulatory steady gait. Abdomen is soft but tender to the right upper and epigastric area. Speaks in full clear sentences. Skin pink warm and dry. Vital signs within normal limits. Afebrile. She denies chest pain, shortness of air, diarrhea, dizziness, headache, focal weakness, numbness or tingling. Blood work is unremarkable. CT abdomen pelvis shows no acute findings. I called and spoke to Dr. Pham who states that the patient can follow-up with him. [] Jessi Disclaimer: Jessi Disclaimer: This electronic medical record was generated, in whole or in part, using a voice recognition dictation system. Departure Departure Impression: Primary Impression: Abdominal pain Qualified Codes: R10.13 - Epigastric pain Disposition: HOME / SELF CARE / HOMELESS Condition: STABLE Referrals: PAUL ROSAS (PCP) Patient Instructions: Abdominal Pain (Nonspecific) Additional Instructions: Follow-up with your primary care or Dr. Pham soon as possible. Drink plenty of fluids. Take all your medications as prescribed and with food. Scripts Hydrocodone Bit/Acetaminophen (HYDROCODONE-APAP 5-325 ) 1 Tab Tablet 1 TAB PO PRN Q6HRS PRN for PAIN, #8 TAB 0 Refills Prov: OTONIEL CHURCHILL APRN 01/21/21 OTONIEL CHURCHILL APRN Jan 21, 2021 11:35
[2021-01-21 11:43] LABS: BILIRUBIN,URINE NEGATIVE (NEG); CLARITY,URINE CLEAR; COLOR,URINE YELLOW; NITRITE,URINE NEGATIVE (NEG); PH,URINE 7.5 (<5.0-8.0); PROTEIN,URINE NEGATIVE (NEG-TRACE); UROBILINOGEN,URINE 0.2 mg/dL (0.2 mg/dL)
[2021-01-21 11:45] LABS: BASO % 1 % (0-3); EOS # 0.1 x10^3/uL (0.0-0.7); EOS % 3 % (0-3); HEMATOCRIT 33.6 % (36.0-47.0); HEMOGLOBIN 11.8 g/dL (12.0-15.5); LYMPH # 1.4 x10^3/uL (1.0-4.8); LYMPH % 24 % (24-48); MEAN CORPUSCULAR HEMOGLOBIN 30 pg (25-35); MEAN CORPUSCULAR HGB CONC 35 g/dL (31-37); MEAN CORPUSCULAR VOLUME 86 fL (79-100); MONO # 0.4 x10^3/uL (0.0-1.1); MONO % 6 % (0-9); NEUT # 3.9 x10^3/uL (1.8-7.7); NEUT % 67 % (31-73); PLATELET COUNT 319 x10^3/uL (140-400); RED BLOOD COUNT 3.91 x10^6/uL (3.50-5.40); WHITE BLOOD COUNT 5.8 x10^3/uL (4.0-11.0)
[2021-01-21 11:49] LABS: CALCIUM 9.7 mg/dL (8.5-10.1); CREATININE 0.8 mg/dL (0.6-1.0); GFR 77.9; POTASSIUM 4.1 mmol/L (3.5-5.1)
[2021-01-21 11:55] LABS: BACTERIA,URINE 0 /HPF (0-FEW); RBC,URINE 0 /HPF (0-2); WBC,URINE 0 /HPF (0-4)
[2021-01-21] MEDS ORDERED: IOHEXOL 300 MG/ML 100ML VIAL. IV ONE (12:00)
[2021-01-21 12:01] LABS: ALBUMIN 3.8 g/dL (3.4-5.0); ALBUMIN/GLOBULIN RATIO 0.9 (1.0-1.7); TOTAL BILIRUBIN 0.3 mg/dL (0.2-1.0); TOTAL PROTEIN 7.9 g/dL (6.4-8.2)
[2021-01-21] MEDS ORDERED: CONTRAST GIVEN. MC PRN (12:15)
--- NOTE | 2021-01-21 12:54 | RAD ---
CT of the abdomen and pelvis with contrast 01/21/2021 12:44 PM Indication: Reason: worsening ruq pain after aleja 01/10 / Spl. Instructions: [id number] 75ML / History: Comparison study: CT abdomen and pelvis January 04, 2021 Technique: Multidetector CT imaging of the abdomen and pelvis was performed following the administrat ion of IV contrast. Findings: The partially visualized lung bases demonstrate no acute abnormality. The liver, spleen, bilateral adrenal glands, bilateral kidneys, and pancreas, are grossly unremarkabl e. There is no bowel obstruction. No evidence of acute inflammatory change involving visualized bowel is identified. Prior appendectomy noted. Bladder is grossly unremarkable. No free fluid or free air is seen in the abdomen or pelvis. No acute osseous changes are identified. Impression: Postoperative changes following recent cholecystectomy. Prior appendectomy noted. No evid ence of acute intra-abdominal abnormality is identified. CT DOSING PQRS STATEMENT: One or more of the following individualized dose reduction techniques were utilized for this examinat ion: 1. Automated exposure control 2. Adjustment of the mA and/or kV according to patient size 3. Use of iterative reconstruction technique Electronically signed by: Mario Graham MD (01/21/2021 12:51 PM) [id number]
[2021-01-21] MEDS ORDERED: HYDR-2761 PO (13:54)
[2021-01-21 14:09] VITALS: BP 168/94
--- NOTE | 2021-01-21 15:54 | EKG ---
[facility] [address] [place] [address] Test Date: 2021-01-21 Test Time: 11:46:28 Pat Name: NAOMY EDMOND Department: Room: Gender: F Skin Pass Operator: : 1975 Requested By: OTONIEL CHURCHILL Order Number: [id number] Reading MD: Measurements Intervals [place] Rate: 89 P: 0 WA: 164 QRS: 36 QRSD: 98 T: 25 QT: 370 QTc: 451 Interpretive Statements SINUS RHYTHM NORMAL ECG RI6.02 No previous ECG available for comparison
== END 2021-01-21 14:23 | disposition home or self-care (01) ==
LOC: ER 10:46
DX: R10.13 Epigastric pain (principal); K59.00 Constipation, unspecified; Z90.89 Acquired absence of other organs; Z98.51 Tubal ligation status; Z88.1 Allergy status to other antibiotic agents; Z88.6 Allergy status to analgesic agent
CPT/HCPCS: 36415; 74177; 80053; 81001; 83690; 84484; 85025; 93005; 96361; 96374; 99285; J3010; J7030; Q9967